=== PATIENT | female | born 1990 | race Caucasian/White ===

== ENCOUNTER 2017-09-20 08:50 | Inpatient (IN) | payer OTHER ==
[~2017-09-20] VITALS: Ht 165.1 cm; Wt 61.7 kg
[2017-09-20] MEDS ORDERED: AMPICILLIN/SULBACTAM 3 GM in SODIUM CHLORIDE 0.9% 100 ML IV ONE (09:30)
[2017-09-20 10:03] LABS: HEMATOCRIT 35.6 % (34.6-47.8); HEMOGLOBIN 11.8 g/dL (11.7-16.4); WHITE BLOOD COUNT 7.7 x10^3/uL (3.4-10)
[2017-09-20 10:13] LABS: BLOOD UREA NITROGEN 10 mg/dL (7-18)
[2017-09-20] MEDS ORDERED: LIDOCAINE 1%, 20ML ONE (10:29)
[2017-09-20] MEDS ORDERED: morphine SULFATE 10 MG/ML, 1ML IVPush ONE (10:30)
[2017-09-20] MEDS ORDERED: LIDOCAINE 1%, 20ML INFIL ONE (10:30)
[2017-09-20] MEDS ORDERED: VANCOMYCIN PER PHARMACY MC ONE (10:30)
[2017-09-20] MEDS ORDERED: ONDANSETRON 2MG/ML, 2ML ONE (10:33)
[2017-09-20] MEDS ORDERED: morphine SULFATE 10 MG/ML, 1ML ONE (10:33)
[2017-09-20] MEDS ORDERED: ONDANSETRON 2MG/ML, 2ML IVPush ONE (11:00)
[2017-09-20] MEDS ORDERED: VANCOMYCIN 1,200 MG in SODIUM CHLORIDE 0.9% 250 ML IV ONE (11:00)
[2017-09-20] MEDS ORDERED: DIPHENHYDRAMINE 50 MG/ML, 1ML ONE (11:17)
[2017-09-20] MEDS ORDERED: DIPHENHYDRAMINE 50 MG/ML, 1ML IVPush ONE (11:30)
[2017-09-20] MEDS ORDERED: DOCUSATE 100 MG CAPSULE PO PRN (11:30)
[2017-09-20] MEDS ORDERED: ONDANSETRON ODT 4 MG PO PRN (11:30)
[2017-09-20] MEDS ORDERED: morphine SULFATE 10 MG/ML, 1ML IVPush PRN (11:30)
[2017-09-20] MEDS ORDERED: VANCOMYCIN PER PHARMACY MC PRN (11:30)
[2017-09-20] MEDS: AMPICILLIN/SULBACTAM 3 GM in SODIUM CHLORIDE 0.9% 100 ML IV SCH ×2 (11:30→20:07)
[2017-09-20] MEDS ORDERED: ONDANSETRON 2MG/ML, 2ML IVPush PRN (11:30)
[2017-09-20] MEDS ORDERED: PHARMACOKINETIC CONSULTATION MC ONE (14:30)
[2017-09-20] MEDS ORDERED: PHARMACOKINETIC MONITORING MC PRN (14:30)
[2017-09-20] MEDS ORDERED: HYDROmorphone 1 MG/ML, 1ML IV ONE (14:30)
[2017-09-20] MEDS ORDERED: HYDROmorphone 1 MG/ML, 1ML ONE (14:32)
[2017-09-20] MEDS: SODIUM CHLORIDE 0.9% 1,000 ML IV SCH (14:39)
[2017-09-20] MEDS: VANCOMYCIN 1,200 MG in SODIUM CHLORIDE 0.9% 250 ML IV SCH (16:30)
[2017-09-20] MEDS: ACETAMINOPHEN 325 MG TABLET PO PRN (18:49)
[2017-09-20] MEDS: LORazepam 1MG TABLET PO PRN (18:49)
[2017-09-20 19:24] VITALS: BP 126/83
[2017-09-21] MEDS: AMPICILLIN/SULBACTAM 3 GM in SODIUM CHLORIDE 0.9% 100 ML IV SCH ×3 (01:51→14:40)
[2017-09-21] MEDS: VANCOMYCIN 1,200 MG in SODIUM CHLORIDE 0.9% 250 ML IV SCH ×2 (02:49→15:18)
[2017-09-21] MEDS: LORazepam 1MG TABLET PO PRN ×2 (02:57→14:02)
[2017-09-21] MEDS: ACETAMINOPHEN 325 MG TABLET PO PRN ×2 (02:58→14:02)
[2017-09-21] MEDS: SODIUM CHLORIDE 0.9% 1,000 ML IV SCH ×2 (06:00→17:41)
[2017-09-21] MEDS ORDERED: HYDROmorphone 2MG TABLET PO PRN (10:00)
[2017-09-21 14:51] VITALS: BP 117/76
[2017-09-21] MEDS ORDERED: morphine SULFATE ORAL.CONC 20 MG/ML ONE (15:30)
[2017-09-21] MEDS: morphine SULFATE ORAL.CONC 20 MG/ML PO PRN (15:34)
[2017-09-21 20:12] VITALS: BP 112/66
[2017-09-22] MEDS: AMPICILLIN/SULBACTAM 3 GM in SODIUM CHLORIDE 0.9% 100 ML IV SCH ×2 (01:10→08:08)
[2017-09-22] MEDS: SODIUM CHLORIDE 0.9% 1,000 ML IV SCH (01:10)
[2017-09-22 02:16] VITALS: BP 107/68
[2017-09-22] MEDS: VANCOMYCIN 1,200 MG in SODIUM CHLORIDE 0.9% 250 ML IV SCH (02:16)
[2017-09-22] MEDS: morphine SULFATE ORAL.CONC 20 MG/ML PO PRN ×2 (02:16→08:17)
[2017-09-22 07:24] VITALS: BP 104/76
== END 2017-09-22 08:56 | disposition left against medical advice (07) | DRG 854 ==
LOC: ED 10:10 → EDIP 10:19 → ED 10:27 → 4NOR 11:50
PROVIDERS: ADMIT Internal Medicine; ATTEND Internal Medicine
PROC: 0J910ZZ Drainage of Face Subcutaneous Tissue and Fascia, Open Approach (ICD-10-PCS; principal; 2017-09-20)
DX: A41.9 Sepsis, unspecified organism (principal); L03.211 Cellulitis of face; F11.90 Opioid use, unspecified, uncomplicated; L02.01 Cutaneous abscess of face; F17.210 Nicotine dependence, cigarettes, uncomplicated; F41.9 Anxiety disorder, unspecified; Z53.20 Procedure and treatment not carried out because of patient's decision for unspecified reasons
CPT/HCPCS: 36415; 80048; 82040; 83605; 85025; 85610; 87040; 99285; J0295; J1170; J2405; J3370; J3490; J1200; J2270; J7030; J7050

== ENCOUNTER 2018-04-25 23:48 | Inpatient (IN) | payer MEDICAID ==
[~2018-04-25] VITALS: Ht 165.1 cm; Wt 68.8 kg
[2018-04-26] MEDS ORDERED: CLINDAMYCIN PMX 600MG/50ML 50 ML IVPB ONE (00:30)
[2018-04-26] MEDS ORDERED: LIDOCAINE 1%-EPI 1:100K, 20ML SQ ONE (00:30)
[2018-04-26] MEDS ORDERED: LIDOCAINE-MPF 2% ,5ML ONE (00:41)
[2018-04-26] MEDS ORDERED: CLINDAMYCIN PMX 600MG/50ML 50 ML ONE (00:46)
[2018-04-26 01:05] LABS: BASOPHILS # (AUTO) 0.02 x10^3/uL (0-0.1); BASOPHILS % (AUTO) 0 % (0-1); EOSINOPHILS # (AUTO) 0.14 x10^3/uL (0-0.4); EOSINOPHILS % (AUTO) 2 % (1-7); LYMPHOCYTES # (AUTO) 2.02 x10^3/uL (1-3.4); LYMPHOCYTES % (AUTO) 34 % (22-44); MD NO; MEAN CORPUSCULAR HEMOGLOBIN 27.4 pg (27.0-34.8); MEAN CORPUSCULAR HGB CONC 33.4 g/dL (32.4-35.8); MEAN CORPUSCULAR VOLUME 82.1 fL (80-100); MEAN PLATELET VOLUME 8.8 fL (7.4-10.4); MONOCYTES # (AUTO) 0.56 x10^3/uL (0.2-0.8); MONOCYTES % (AUTO) 9 % (2-9); NEUTROPHILS # (AUTO) 3.24 x10^3/uL (1.8-6.8); NEUTROPHILS % (AUTO) 54 % (42-75); PLATELET COUNT 260 x10^3/uL (130-400); RED BLOOD COUNT 3.98 x10^6/uL (3.82-5.3); RED CELL DISTRIBUTION WIDTH 14.4 % (9.6-15.2)
[2018-04-26 01:17] LABS: ALANINE AMINOTRANSFERASE 15 U/L (12-78); ALBUMIN 3.1 g/dL (3.4-5.0); ANION GAP 6 mmol/L (5-15); CALCIUM 8.4 mg/dL (8.5-10.1); CHLORIDE 106 mmol/L (98-107); CREATININE 0.59 mg/dL (0.55-1.02)
[2018-04-26 01:19] LABS: ALKALINE PHOSPHATASE 74 U/L (45-117); BILIRUBIN,TOTAL 0.4 mg/dL (0.2-1.0); TOTAL PROTEIN 6.6 g/dL (6.4-8.2)
[2018-04-26] MEDS ORDERED: ONDANSETRON 2MG/ML, 2ML IVPush PRN ×2 (02:00→05:00)
[2018-04-26 02:21] VITALS: BP 116/73
[2018-04-26] MEDS ORDERED: NS + 20MEQ KCL 1,000 ML IV SCH (04:59)
[2018-04-26] MEDS ORDERED: POLYETHYLENE GLYCOL 17 GM PACKET PO PRN (05:00)
[2018-04-26] MEDS ORDERED: ENOXAPARIN 40 MG/0.4 ML SQ SCH (05:00)
[2018-04-26] MEDS ORDERED: ACETAMINOPHEN 325 MG TABLET PO PRN (05:00)
[2018-04-26] MEDS: CLINDAMYCIN PMX 600MG/50ML 50 ML IV SCH ×2 (05:23→12:02)
[2018-04-26] MEDS ORDERED: POTASSIUM CHLORIDE 20 MEQ TAB.ER.PRT PO ONE (05:30)
[2018-04-26 05:45] VITALS: BP 116/73
[2018-04-26 07:41] VITALS: BP 100/63
[2018-04-26] MEDS ORDERED: HYDROmorphone 2 MG/ML, 1ML ONE ×2 (11:25→11:57)
[2018-04-26] MEDS: HYDROmorphone 1 MG/ML, 1ML IV PRN ×2 (11:27→12:02)
[2018-04-26 12:39] VITALS: BP 115/74
== END 2018-04-26 19:15 | disposition left against medical advice (07) | DRG 602 ==
LOC: ED 23:59 → 3NE 04-26 01:36
PROVIDERS: ADMIT Hospitalist; ATTEND Hospitalist
PROC: 0J9G3ZZ Drainage of Right Lower Arm Subcutaneous Tissue and Fascia, Percutaneous Approach (ICD-10-PCS; principal; 2018-04-26)
DX: L03.113 Cellulitis of right upper limb (principal); E43 Unspecified severe protein-calorie malnutrition; L02.416 Cutaneous abscess of left lower limb; F19.10 Other psychoactive substance abuse, uncomplicated; F17.210 Nicotine dependence, cigarettes, uncomplicated; E87.6 Hypokalemia; D64.9 Anemia, unspecified; L03.114 Cellulitis of left upper limb; F11.10 Opioid abuse, uncomplicated; Z53.21 Procedure and treatment not carried out due to patient leaving prior to being seen by health care provider
CPT/HCPCS: 10060; 36415; 80053; 85025; 87040; 96365; J1170; J1650; J3480

== ENCOUNTER 2018-07-03 09:12 | Emergency (ER) | payer MEDICAID ==
[~2018-07-03] VITALS: Ht 165.1 cm; Wt 60.9 kg
[2018-07-03 09:19] VITALS: BP 105/67
[2018-07-03] MEDS ORDERED: DIPHENHYDRAMINE 50 MG CAPSULE ONE (09:51)
[2018-07-03] MEDS ORDERED: DIPHENHYDRAMINE 25 MG CAPSULE PO ONE (10:00)
== END 2018-07-03 10:43 | disposition home or self-care (01) ==
LOC: ED 09:30
DX: S30.861A Insect bite (nonvenomous) of abdominal wall, initial encounter (principal); L03.311 Cellulitis of abdominal wall; W57.XXXA Bitten or stung by nonvenomous insect and other nonvenomous arthropods, initial encounter; Y93.89 Activity, other specified; Y99.8 Other external cause status; Y92.89 Other specified places as the place of occurrence of the external cause
CPT/HCPCS: 99283; Q0163

== ENCOUNTER 2018-08-22 14:30 | Emergency (ER) | payer MEDICAID ==
[~2018-08-22] VITALS: Ht 165.1 cm; Wt 59.6 kg
[2018-08-22 14:54] VITALS: BP 126/86
[2018-08-22] MEDS ORDERED: DEXAMETHASONE 4 MG/ML, 5ML ONE (15:14)
[2018-08-22] MEDS ORDERED: DEXAMETHASONE 4 MG/ML, 1ML PO ONE (15:30)
== END 2018-08-22 16:01 | disposition home or self-care (01) ==
LOC: ED 15:16
DX: J02.8 Acute pharyngitis due to other specified organisms (principal); B97.89 Other viral agents as the cause of diseases classified elsewhere; F17.200 Nicotine dependence, unspecified, uncomplicated
CPT/HCPCS: 87081; 87147; 87880; 99284; J1100

== ENCOUNTER 2018-08-29 19:59 | Emergency (ER) | payer MEDICAID ==
[~2018-08-29] VITALS: Ht 162.6 cm; Wt 59.3 kg
[2018-08-29 20:07] VITALS: BP 126/82
== END 2018-08-29 20:25 | disposition home or self-care (01) ==
LOC: ED 20:10
DX: K02.9 Dental caries, unspecified (principal)
CPT/HCPCS: 99283

== ENCOUNTER 2018-09-11 09:04 | Emergency (ER) | payer MEDICAID ==
[~2018-09-11] VITALS: Ht 165.1 cm; Wt 60.2 kg
[2018-09-11 09:05] VITALS: BP 119/80
[2018-09-11] MEDS ORDERED: CEPHALEXIN 500 MG CAPSULE PO ONE (10:30)
[2018-09-11] MEDS ORDERED: SULFAMETH./TRIMETHOPRIM DS 800MG/160MG TABLET PO ONE (10:30)
== END 2018-09-11 11:32 | disposition home or self-care (01) ==
LOC: ED 09:19
DX: L03.221 Cellulitis of neck (principal); F17.200 Nicotine dependence, unspecified, uncomplicated
CPT/HCPCS: 76536; 99284

== ENCOUNTER 2018-09-23 04:56 | Emergency (ER) | payer MEDICAID ==
[~2018-09-23] VITALS: Ht 162.6 cm; Wt 60.0 kg
[2018-09-23 05:05] VITALS: BP 122/84
== END 2018-09-23 05:46 | disposition home or self-care (01) ==
LOC: ED 05:45
DX: K64.4 Residual hemorrhoidal skin tags (principal)
CPT/HCPCS: 99283

== ENCOUNTER 2018-10-10 23:28 | Emergency (ER) | payer MEDICAID ==
[~2018-10-10] VITALS: Ht 162.6 cm; Wt 60.6 kg
[2018-10-10 23:30] VITALS: BP 133/77
[2018-10-11] MEDS ORDERED: LIDOCAINE 1%-EPI 1:100K, 20ML SQ ONE
[2018-10-11 00:22] LABS: BASOPHILS # (AUTO) 0.02 x10^3/uL (0-0.1); BASOPHILS % (AUTO) 0 % (0-1); EOSINOPHILS % (AUTO) 2 % (1-7); LYMPHOCYTES # (AUTO) 1.52 x10^3/uL (1-3.4); LYMPHOCYTES % (AUTO) 30 % (22-44); MD NO; MEAN CORPUSCULAR HEMOGLOBIN 27.5 pg (27.0-34.8); MEAN CORPUSCULAR HGB CONC 33.4 g/dL (32.4-35.8); MEAN CORPUSCULAR VOLUME 82.5 fL (80-100); MEAN PLATELET VOLUME 7.6 fL (7.4-10.4); MONOCYTES # (AUTO) 0.46 x10^3/uL (0.2-0.8); MONOCYTES % (AUTO) 9 % (2-9); NEUTROPHILS # (AUTO) 2.92 x10^3/uL (1.8-6.8); NEUTROPHILS % (AUTO) 58 % (42-75); PLATELET COUNT 265 x10^3/uL (130-400); RED BLOOD COUNT 4.06 x10^6/uL (3.82-5.3); RED CELL DISTRIBUTION WIDTH 14.6 % (9.6-15.2)
[2018-10-11 00:30] LABS: ANION GAP 6 mmol/L (5-15); CALCIUM 8.4 mg/dL (8.5-10.1); CHLORIDE 102 mmol/L (98-107); CREATININE 0.58 mg/dL (0.55-1.02)
[2018-10-11] MEDS ORDERED: LIDOCAINE 1%-EPI 1:100K, 30ML ONE (00:36)
[2018-10-11] MEDS ORDERED: CEFAZOLIN 1,000 MG ONE (01:25)
[2018-10-11] MEDS ORDERED: SULFAMETH./TRIMETHOPRIM DS 800MG/160MG TABLET ONE (01:25)
[2018-10-11] MEDS ORDERED: SULFAMETH./TRIMETHOPRIM DS 800MG/160MG TABLET PO ONE (01:30)
[2018-10-11] MEDS ORDERED: CEFAZOLIN 1,000 MG IM ONE (01:30)
== END 2018-10-11 01:50 | disposition home or self-care (01) ==
LOC: ED 23:52
DX: L02.413 Cutaneous abscess of right upper limb (principal)
CPT/HCPCS: 10060; 36415; 80048; 82040; 83605; 85025; 87040; 99283

== ENCOUNTER 2018-10-28 06:57 | Emergency (ER) | payer MEDICAID ==
[~2018-10-28] VITALS: Ht 162.6 cm; Wt 59.8 kg
[2018-10-28 06:59] VITALS: BP 100/58
[2018-10-28] MEDS ORDERED: LIDOCAINE-MPF 1%, 5ML ONE (07:17)
[2018-10-28] MEDS ORDERED: LIDOCAINE-MPF 1%, 5ML INFIL ONE (07:30)
== END 2018-10-28 08:36 | disposition home or self-care (01) ==
LOC: ED 08:31
DX: L02.415 Cutaneous abscess of right lower limb (principal); F17.210 Nicotine dependence, cigarettes, uncomplicated; F11.129 Opioid abuse with intoxication, unspecified
CPT/HCPCS: 10060; 99283

== ENCOUNTER 2019-02-26 11:41 | Emergency (ER) | payer MEDICAID ==
[~2019-02-26] VITALS: Ht 162.6 cm; Wt 61.7 kg
--- NOTE | 2019-02-26 12:02 | NUR ---
PT AMBULATORY TO BATHROOM WITH STEADY GAIT FOR URINE SAMPLE.
[2019-02-26] MEDS ORDERED: ONDANSETRON ODT 4 MG ONE (12:20)
--- NOTE | 2019-02-26 12:28 | NUR ---
ATTEMPTED TO START IV, PT YELLED "GET THAT FUCKING NEEDLE OUT OF MY ARM. I HAVE A LOT OF SCAR TISSUE THERE I DON'T KNOW WHY YOU PICKD THAT SPOT." MD AWARE THAT PT IS REFUSING IV THERAPY AT THIS TIME. NEW ORDERS RECIEVED AND IMPLEMENTED.
[2019-02-26] MEDS ORDERED: ONDANSETRON ODT 4 MG PO ONE (12:30)
[2019-02-26] MEDS ORDERED: SODIUM CHLORIDE 0.9% 1,000ML IVBOLUS ONE (12:30)
[2019-02-26] MEDS ORDERED: SODIUM CHLORIDE FLUSH 10ML SYR IVF ONE (12:30)
[2019-02-26 12:48] LABS: HCG UR SG 1.036 (1.003-1.030)
[2019-02-26 12:49] LABS: MICROSCOPIC INDICATED
[2019-02-26 13:15] LABS: CULTURE INDICATED? YES
--- NOTE | 2019-02-26 14:02 | NUR ---
REPORT RECEIVED, CARE ASSUMED. PT LAYING ON GURNEY, NO ACUTE DISTRESS NOTED. NO VOMITING AT THIS TIME. NO IV TO DC. REVIEWED DC INSTRUCTIONS WITH PT. UNDERSTANDING VERBALIZED.
[2019-02-26 14:03] VITALS: BP 103/58
== END 2019-02-26 14:05 | disposition home or self-care (01) ==
LOC: ED 13:14
PROC: 2W2AX4Z Dressing of Right Upper Arm using Bandage (ICD-10-PCS; principal; 2019-02-26)
DX: G43.A1 Cyclical vomiting, in migraine, intractable (principal); F17.200 Nicotine dependence, unspecified, uncomplicated; Z72.9 Problem related to lifestyle, unspecified
CPT/HCPCS: 81001; 81025; 87086; 99283; Q0162

== ENCOUNTER 2019-06-05 21:38 | Emergency (ER) | payer MEDICAID, OTHER ==
[~2019-06-05] VITALS: Ht 165.1 cm; Wt 64.7 kg
--- NOTE | 2019-06-05 21:42 | NUR ---
ATTEMPTED TO CALL PT FROM LOBBY TO TRIAGE. PT NIL X 1
[2019-06-05 21:44] VITALS: BP 109/80
[2019-06-05] MEDS ORDERED: LIDOCAINE 1%-EPI 1:100K, 20ML SQ ONE (22:00)
[2019-06-05] MEDS ORDERED: LIDOCAINE-MPF 1%, 5ML ONE (22:08)
--- NOTE | 2019-06-05 22:13 | NUR ---
REPORT GIVEN TO CECILIO MALONEY, CARE TRANSFERRED AT THIS TIME.
--- NOTE | 2019-06-05 22:18 | NUR ---
REPORT RECEIVED FROM RUBEN MALONEY.
--- NOTE | 2019-06-05 22:23 | NUR ---
PT WITH ABSCESS ON RIGHT FOREARM. PT REPORTS IV HEROIN USE. PT'S AOX4. RESPS EVEN AND UNLABORED.
--- NOTE | 2019-06-05 22:49 | NUR ---
Patient given discharge instructions and they have confirmed that they understand the instructions. Patient ambulatory with steady gait.
== END 2019-06-05 22:49 | disposition home or self-care (01) ==
LOC: ED 22:01
DX: L03.113 Cellulitis of right upper limb (principal); M79.631 Pain in right forearm; Z72.9 Problem related to lifestyle, unspecified; F17.210 Nicotine dependence, cigarettes, uncomplicated
CPT/HCPCS: 10060; 99283

== ENCOUNTER 2019-06-08 04:31 | Emergency (ER) | payer SELFPAY ==
[~2019-06-08] VITALS: Ht 162.6 cm; Wt 64.8 kg
[2019-06-08 04:34] VITALS: BP 145/79
== END 2019-06-08 05:51 | disposition home or self-care (01) ==
LOC: ED 05:36
DX: Z48.01 Encounter for change or removal of surgical wound dressing (principal)
CPT/HCPCS: 99283

== ENCOUNTER 2019-06-17 11:03 | Emergency (ER) | payer SELFPAY ==
[~2019-06-17] VITALS: Ht 165.1 cm; Wt 65.5 kg
[2019-06-17 11:05] VITALS: BP 120/83
== END 2019-06-17 13:22 | disposition home or self-care (01) ==
LOC: ED 11:32
DX: L03.113 Cellulitis of right upper limb (principal); L02.413 Cutaneous abscess of right upper limb; Z72.9 Problem related to lifestyle, unspecified
CPT/HCPCS: 10060; 99283

== ENCOUNTER 2020-01-24 01:40 | Emergency (ER) | payer MEDICAID ==
[~2020-01-24] VITALS: Ht 162.6 cm; Wt 69.3 kg
[2020-01-24 01:57] VITALS: BP 124/71
--- NOTE | 2020-01-24 01:59 | NUR ---
Patient presents to ER c/o abd cramping since yesterday. Patient states her boyfriend came in recently for a possible STD and she wants to make sure she doesn't have it. Patient states she has been spotting the last couple days and tonight it is a constant flow. Patient states there is a chance she could be . Patient is in NAD. Respirations even and unlabored.
[2020-01-24] MEDS ORDERED: ACETAMINOPHEN 500 MG TABLET PO ONE (02:00)
[2020-01-24] MEDS ORDERED: ACETAMINOPHEN 500 MG TABLET ONE (02:02)
--- NOTE | 2020-01-24 02:10 | NUR ---
Attempted to obtain urine from patient. She states she is unable right now but will drink a bottle of water then try.
[2020-01-24] MEDS ORDERED: CEFTRIAXONE 250 MG ONE (02:21)
[2020-01-24] MEDS ORDERED: AZITHROMYCIN 250 MG TABLET ONE (02:21)
[2020-01-24] MEDS ORDERED: AZITHROMYCIN 500 MG TABLET PO ONE (02:30)
[2020-01-24] MEDS ORDERED: CEFTRIAXONE 250 MG IM ONE (02:30)
[2020-01-24 02:38] LABS: CLUE CELLS NONE SEEN (NONE SEEN); WET PREP WBCS FEW (FEW)
[2020-01-24 02:45] LABS: HCG UR SG 1.031 (1.003-1.030)
[2020-01-24 02:47] LABS: CULTURE INDICATED? YES; MICROSCOPIC INDICATED
--- NOTE | 2020-01-24 03:14 | NUR ---
Discharge instructions given. All questions and concerns addressed. Patient ambulatory with a steady gait. Belongings with patient.
== END 2020-01-24 03:15 | disposition home or self-care (01) ==
LOC: ED 02:08
DX: N39.0 Urinary tract infection, site not specified (principal); K40.90 Unilateral inguinal hernia, without obstruction or gangrene, not specified as recurrent
CPT/HCPCS: 81001; 81025; 87077; 87086; 87186; 87210; 87491; 87591; 87808; 96372; 99283; J0696

== ENCOUNTER 2020-03-02 19:36 | Emergency (ER) | payer MEDICAID ==
[~2020-03-02] VITALS: Ht 165.1 cm; Wt 68.0 kg
[2020-03-02 19:40] VITALS: BP 119/74
[2020-03-02] MEDS ORDERED: DEXAMETHASONE 4 MG TABLET ONE (20:09)
--- NOTE | 2020-03-02 20:12 | NUR ---
PT MEDICATED IN LOBBY PER DEC.
[2020-03-02] MEDS ORDERED: DEXAMETHASONE 4 MG TABLET PO ONE (20:30)
--- NOTE | 2020-03-02 20:32 | NUR ---
Patient/Caregiver given discharge instructions and they have confirmed that they understand the instructions. Patient ambulatory with steady gait.
== END 2020-03-02 20:34 | disposition home or self-care (01) ==
LOC: ED 20:25
DX: J02.8 Acute pharyngitis due to other specified organisms (principal); B97.89 Other viral agents as the cause of diseases classified elsewhere
CPT/HCPCS: 87081; 87880; 99283

== ENCOUNTER 2020-10-30 04:47 | Emergency (ER) | payer MEDICAID ==
[~2020-10-30] VITALS: Ht 165.1 cm; Wt 78.0 kg
[2020-10-30 04:51] VITALS: BP 125/72
--- NOTE | 2020-10-30 05:06 | NUR ---
PT HERE FOR ABSCESS, DOES WANT IT TO BE DRAINED, REQUESTING ANTIBIOTICS. ERP AWARE
== END 2020-10-30 05:47 | disposition home or self-care (01) ==
LOC: ED 05:00
DX: L02.415 Cutaneous abscess of right lower limb (principal)
CPT/HCPCS: 99283